=== PATIENT | female | born 1975 | race Caucasian/White ===

== ENCOUNTER 2020-04-22 06:29 | Emergency (ER) | payer BC, OTHER ==
[~2020-04-22] VITALS: Ht 162.6 cm; Wt 79.5 kg
--- NOTE | 2020-04-22 06:51 | NUR ---
Report received from [facility]. Pt BIB family. Per pt, she is staying at hotel and order room service dinner last night. Pt woke up this morning with severe bilateral upper quadrant abdominal pain and cramping. Pt denies any fever, chills or diarrhea.
[2020-04-22] MEDS ORDERED: SODIUM CHLORIDE 0.9% 1,000ML IVBOLUS ONE (07:00)
[2020-04-22] MEDS ORDERED: SODIUM CHLORIDE FLUSH 10ML SYR IVF ONE (07:00)
[2020-04-22] MEDS ORDERED: ONDANSETRON 2MG/ML, 2ML IVPush ONE (07:00)
[2020-04-22] MEDS ORDERED: MORPHINE SULFATE 4 MG/ML, 1ML IVPush PRN (07:00)
[2020-04-22 07:30] LABS: MICROSCOPIC NOT IND
[2020-04-22 07:47] LABS: BASOPHILS % (AUTO) 1 % (0-1); EOSINOPHILS % (AUTO) 0 % (1-7); LYMPHOCYTES % (AUTO) 10 % (22-44); MD NO; MEAN CORPUSCULAR HEMOGLOBIN 29.3 pg (27.0-34.8); MEAN CORPUSCULAR HGB CONC 34.2 g/dL (32.4-35.8); MEAN PLATELET VOLUME 7.7 fL (7.4-10.4); MONOCYTES % (AUTO) 4 % (2-9); NEUTROPHILS % (AUTO) 86 % (42-75); PLATELET COUNT 139 x10^3/uL (130-400); RED BLOOD COUNT 5.09 x10^6/uL (3.82-5.3); RED CELL DISTRIBUTION WIDTH 13.1 % (9.6-15.2)
[2020-04-22] MEDS ORDERED: MORPHINE SULFATE 4 MG/ML, 1ML ONE (07:49)
[2020-04-22] MEDS ORDERED: ONDANSETRON 2MG/ML, 2ML ONE (07:49)
[2020-04-22 07:50] LABS: CHLORIDE 111 mmol/L (98-107)
[2020-04-22 07:51] LABS: ALANINE AMINOTRANSFERASE 30 U/L (12-78); ALBUMIN 4.2 g/dL (3.4-5.0); ANION GAP 10 mmol/L (5-15); CREATININE 0.92 mg/dL (0.55-1.02)
[2020-04-22 07:55] LABS: ALKALINE PHOSPHATASE 86 U/L (45-117); BILIRUBIN,TOTAL 0.8 mg/dL (0.2-1.0); TOTAL PROTEIN 8.1 g/dL (6.4-8.2)
[2020-04-22 08:59] VITALS: BP 155/90
--- NOTE | 2020-04-22 10:03 | NUR ---
DISCHARGE INSTRUCTIONS REVIEWED WITH PT. IV CATHETER REMOVED. ALL QUESTIONS ANSWERED AT THIS TIME.
== END 2020-04-22 10:06 | disposition home or self-care (01) ==
LOC: ED 08:38
DX: K80.20 Calculus of gallbladder without cholecystitis without obstruction (principal); R73.9 Hyperglycemia, unspecified; R10.12 Left upper quadrant pain; R10.11 Right upper quadrant pain; R10.13 Epigastric pain; R11.2 Nausea with vomiting, unspecified
CPT/HCPCS: 36415; 76700; 80053; 81003; 83690; 84703; 85025; 96361; 96374; 96375; 99284; J2270; J2405; J7030